=== PATIENT | female | born 2000 | race Caucasian/White ===

== ENCOUNTER 2024-09-10 08:46 | Emergency (ER) | payer BC ==
--- NOTE | 2024-09-10 10:21 | EDPHYS ---
Physician Documentation [facility] Name: Keisha Mann Age: 23 yrs Sex: Female : 2000 Arrival Date: 09/10/2024 Time: 08:46 Bed 13 Private MD: ALEXANDRA Physician Brett Gaspar HPI: 09/10 10:15 This 23 yrs old Female presents to ER via Ambulatory with complaints of Cyst faith - lower back. 10:15 The patient presents with an abscess of the coccyx, The patient presents with faith cellulitis of the coccyx. Description: The affected area is small, confluent. Onset: The symptoms/episode began/occurred 3 day(s) ago. Possible cause(s): hair. Associated signs and symptoms: The patient has no apparent associated signs or symptoms. Modifying factors: the symptoms are alleviated by remaining still, the symptoms are aggravated by movement, walking, pressure, sitting. Severity of symptoms: At their worst the symptoms were mild, moderate, in the emergency department the symptoms are unchanged. The patient has not experienced similar symptoms in the past. 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 - Infectious Disease History:: Denies. - Social history:: Smoking status: Patient denies any tobacco usage or history of. - Family history:: not pertinent. ROS: 10:15 Constitutional: Negative for fever, chills, and weight loss, Eyes: Negative for injury, faith pain, redness, and discharge, ENT: Negative for injury, pain, and discharge, Neck: Negative for injury, pain, and swelling, Cardiovascular: Negative for chest pain, palpitations, and edema, Respiratory: Negative for shortness of breath, cough, wheezing, and pleuritic chest pain, Abdomen/GI: Negative for abdominal pain, nausea, vomiting, diarrhea, and constipation, Back: Negative for injury and pain, : Negative for injury, bleeding, discharge, and swelling, MS/Extremity: Negative for injury and deformity, Skin: Negative for injury, rash, and discoloration, Neuro: Negative for headache, weakness, numbness, tingling, and seizure, Psych: Negative for depression, anxiety, suicide ideation, homicidal ideation, and hallucinations, Allergy/Immunology: Negative for hives, rash, and allergies, Endocrine: Negative for neck swelling, polydipsia, polyuria, polyphagia, and marked weight changes, Hematologic/Lymphatic: Negative for swollen nodes, abnormal bleeding, and unusual bruising, Exam: 10:15 Constitutional: This is a well developed, well nourished patient who is awake, alert, faith and in no acute distress. Head/Face: Normocephalic, atraumatic. Eyes: Pupils equal round and reactive to light, extra-ocular motions intact. Lids and lashes normal. Conjunctiva and sclera are non-icteric and not injected. Cornea within normal limits. Periorbital areas with no swelling, redness, or edema. ENT: Nares patent. No nasal discharge, no septal abnormalities noted. Tympanic membranes are normal and external auditory canals are clear. Oropharynx with no redness, swelling, or masses, exudates, or evidence of obstruction, uvula midline. Mucous membranes moist. Neck: Trachea midline, no thyromegaly or masses palpated, and no cervical lymphadenopathy. Supple, full range of motion without nuchal rigidity, or vertebral point tenderness. No Meningismus. Chest/axilla: Normal chest wall appearance and motion. Nontender with no deformity. No lesions are appreciated. Cardiovascular: Regular rate and rhythm with a normal S1 and S2. No gallops, murmurs, or rubs. Normal PMI, no JVD. No pulse deficits. Respiratory: Lungs have equal breath sounds bilaterally, clear to auscultation and percussion. No rales, rhonchi or wheezes noted. No increased work of breathing, no retractions or nasal flaring. Abdomen/GI: Soft, non-tender, with normal bowel sounds. No distension or tympany. No guarding or rebound. No evidence of tenderness throughout. Back: No spinal tenderness. No costovertebral tenderness. Full range of motion. MS/ Extremity: Pulses equal, no cyanosis. Neurovascular intact. Full, normal range of motion., bilateral aka Neuro: Awake and alert, GCS 15, oriented to person, place, time, and situation. Cranial nerves II-XII grossly intact. Motor strength 5/5 in all extremities. Sensory grossly intact. Cerebellar exam normal. Normal gait. Psych: Awake, alert, with orientation to person, place and time. Behavior, mood, and affect are within normal limits. 10:15 Skin: abscess, that is small, of the coccyx, cellulitis, that is minimal, induration, that is moderate is noted, located on the coccyx, Vital Signs: 09:07 BP 121 / 79; Pulse 96; Resp 15; Temp 97.5; Pulse Ox 98% ; Weight 58.06 kg; Height 5 ft. jl7 3 in. ; Pain 02/11; 09:07 Body Mass Index 22.67 (58.06 kg, 160.02 cm) [facility] 09:07 Pain Scale: Adult jl7 MDM: 08:53 Medical Screening Exam initiated [facility] 10:18 Differential diagnosis: abscess, cellulitis. Data reviewed: vital signs, nurses notes, [facility] lab test result(s), urinalysis. Consideration of Admission/Observation Escalation of care including admission/observation considered. I considered the following discharge prescriptions or medication management in the emergency department Medications were administered in the Emergency Department. See MAR. Test considered but Not performed: Labs: no labs. Care significantly affected by the following chronic conditions: none. 09/10 10:15 Order name: Urinalysis w/ reflexes faith 09/10 10:15 Order name: PREGU faith Administered Medications: 11:01 Drug: Cephalexin PO 500 mg PO once Route: PO; go2 11:01 Drug: Trimethoprim-Sulfamethoxazole PO (160 mg-800 mg (DS) 1 tablet PO once Route: PO; go2 11:01 Drug: Ibuprofen PO 600 mg PO once Route: PO; go2 Disposition Summary: 09/10/24 10:21 Discharge Ordered Notes: Location: Home [facility] Problem: new faith Symptoms: have improved faith Condition: Stable faith Diagnosis - Pilonidal cyst with abscess faith - Cellulitis of buttock faith Followup: faith - With: Private Physician - When: 2 - 3 days - Reason: Recheck today's complaints, Continuance of care, Re-evaluation by your physician Followup: faith - With: Contreras Dawson MD - When: Today - Reason: Recheck today's complaints, Re-evaluation by your physician Discharge Instructions: - Discharge Summary Sheet faith - Skin Abscess faith - Cellulitis, Adult faith - Pilonidal Cyst faith - How to Take a Sitz Bath faith - Cellulitis, Adult, [id number] [facility] Forms: - Medication Reconciliation Form faith - Antibiotic Education faith - Prescription Opioid Use faith - Patient Portal Instructions faith - Leadership Thank You Letter faith - Work release form ap3 Prescriptions: - Cephalexin 500 mg Oral capsule - take 1 capsule ORAL route every 6 hours for 7 days; 28 capsule; Refills: 0, [facility] Product Selection Permitted - Motrin IB 200 mg Oral tablet - take 2 tablet ORAL route every 6 hours As needed as needed with food; 30 faith tablet; Refills: 0, Product Selection Permitted - Bactrim DS 800-160 mg Oral Tablet - take 1 tablet ORAL route every 12 hours for 7 days; 14 tablet; Refills: 0, [facility] Product Selection Permitted Signatures: Dispatcher [employer] Brett Ramírez MD MD cha Leal, Jahala, RN RN jl7 Gogo Kunz RN RN go2
--- NOTE | 2024-09-10 10:21 | ER ---
Nurse's Notes [facility] Name: Keisha Mann Age: 23 yrs Sex: Female : 2000 Arrival Date: 09/10/2024 Time: 08:46 Bed 13 Private MD: Diagnosis: Pilonidal cyst with abscess;Cellulitis of buttock Presentation: 09/10 09:07 Chief complaint: Patient states: Pilonidal cyst for months but just started hurting jl7 yesterday. Coronavirus screen: At this time, the client does not indicate any symptoms associated with coronavirus-19. Ebola Screen: No symptoms or risks identified at this time. Initial Sepsis Screen: Does the patient meet any 2 criteria? No. Patient's initial sepsis screen is negative. Does the patient have a suspected source of infection? No. Patient's initial sepsis screen is negative. Risk Assessment: Do you want to hurt yourself or someone else? Patient reports no desire to harm self or others. Onset of symptoms is unknown. 09:07 Method Of Arrival: Ambulatory [facility] 09:07 Acuity: BELKIS 4 jl7 Triage Assessment: 09:09 General: Appears in no apparent distress. uncomfortable, Behavior is calm, cooperative, jl7 appropriate for age. Pain: Complains of pain in buttocks Pain currently is 7 out of 10 on a pain scale. Derm: Skin is intact, Skin is pink, warm \T\ dry. redness noted to sacral area. 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 - Infectious Disease History:: Denies. - Social history:: Smoking status: Patient denies any tobacco usage or history of. - Family history:: not pertinent. Screenin:28 [facility] ED Fall Risk Assessment (Adult) History of falling in the last 3 months, go2 including since admission No falls in past 3 months (0 pts) Confusion or Disorientation No (0 pts) Intoxicated or Sedated No (0 pts) Impaired Gait No (0 pts) Mobility Assist Device Used No (0 pt) Altered Elimination No (0 pt) Score/Fall Risk Level 0 - 2 = Low Risk. Abuse screen: Denies threats or abuse. Denies injuries from another. Nutritional screening: No deficits noted. Tuberculosis screening: No symptoms or risk factors identified. Assessment: 11:26 Reassessment: No changes from previously documented assessment. Patient states feeling go2 better. Patient states symptoms have improved. General: Appears in no apparent distress. comfortable, well groomed, Behavior is calm, cooperative, appropriate for age, Smells of Reports Denies fever, fatigue, chills. Pain: Complains of pain in buttocks. Neuro: No deficits noted. Respiratory:. GI: No deficits noted. : No deficits noted. EENT: No deficits noted. Derm: Abscess located on buttocks is half dollar sized, Reports pain that is 6 out of 10 on a pain scale. Musculoskeletal: No deficits noted. Vital Signs: 09:07 BP 121 / 79; Pulse 96; Resp 15; Temp 97.5; Pulse Ox 98% ; Weight 58.06 kg; Height 5 ft. jl7 3 in. ; Pain 7/10; 09:07 Body Mass Index 22.67 (58.06 kg, 160.02 cm) jl7 09:07 Pain Scale: Adult jl7 ED Course: 08:50 Patient arrived in ED. al6 08:53 Brett Gaspar MD is Attending Physician. [facility] 09:09 Triage completed. jl7 09:09 Arm band placed on right wrist. Patient placed in waiting room, Patient notified of jl7 wait time. 10:21 Contreras Dawson MD is Referral Physician. faiht 10:24 Gogo Kunz RN is Primary Nurse. go2 10:41 PREGU Sent. zm 10:41 Urinalysis w/ reflexes Sent. zm 10:42 Urine collected: clean catch specimen, clear. zm 10:52 PREGU Sent. go2 10:52 Urinalysis w/ reflexes Sent. go2 Administered Medications: 11:01 Drug: Cephalexin PO 500 mg PO once Route: PO; go2 11:01 Drug: Trimethoprim-Sulfamethoxazole PO (160 mg-800 mg (DS) 1 tablet PO once Route: PO; go2 11:01 Drug: Ibuprofen PO 600 mg PO once Route: PO; go2 Outcome: 10:21 Discharge ordered by . faith 11:27 Patient left the ED. iw Signatures: Brett Gaspar MD MD cha Williams, Irene, RN RN iw Leal, Jahala, RN RN jl7 Zuleyka Lyons Gabby, RN RN go2 Sofie Werner
[2024-09-10 10:55] LABS: Specific Gravity 1.024 (1.005-1.030)
[2024-09-10 10:57] LABS: Specific Gravity 1.024 (1.005-1.030); Sqamous Epithelial <5 /HPF (None Seen); Urine Bacteria None Seen /HPF (<20); Urine Bilirubin NEGATIVE (Negative); Urine Blood 2+ (Negative); Urine Clarity Turbid (Clear); Urine Color Light-Yellow (Yellow); Urine Culture Reflex Order NOT NEEDED; Urine Glucose NEGATIVE (Negative); Urine Ketones TRACE (Negative); Urine Microscopic Reflex YN ORDER UMIC; Urine Mucus Slight /HPF (None Seen); Urine Nitrite NEGATIVE (Negative); Urine Protein NEGATIVE (Negative); Urine Urobilinogen Normal (Normal); Urine WBC <5 /HPF (<5); Urine pH 6.5 (5.0-7.0)
[2024-09-10] MEDS ORDERED: CEPHALEXIN 250 MG CAP ONE (10:58)
[2024-09-10] MEDS ORDERED: IBUPROFEN 200 MG TAB PO ONE (10:59)
[2024-09-10] MEDS ORDERED: IBUPROFEN 400 MG TAB ONE (10:59)
[2024-09-10] MEDS ORDERED: SMZ./TMP. 800/160 MG TABLET ONE (11:01)
[2024-09-10 11:47] VITALS: BP 121/79; TEMP 97.5; O2SAT 98
== END 2024-09-10 11:27 | disposition home or self-care (01) ==
LOC: ER 08:46
DX: L05.01 Pilonidal cyst with abscess (principal); L03.317 Cellulitis of buttock
CPT/HCPCS: 81001; 81025; 99283

== ENCOUNTER 2024-09-18 11:58 | Day surgery (SDC) | payer BC ==
[2024-09-17 11:10] LABS: Anion Gap 8.7 mEq/L (5.0-15.0); Potassium 3.7 mEq/L (3.5-5.1)
[2024-09-18] MEDS: Ringers Lactate 1,000 ML IV ONE (12:25)
[2024-09-18] MEDS ORDERED: MIDAZOLAM HCL 2 MG/2 ML INJ ONE (12:46)
[2024-09-18] MEDS ORDERED: FENTANYL CITR 100 MCG/2 ML ONE (12:46)
[2024-09-18] MEDS ORDERED: LIDOCAINE 2% MPF 5 ML VIAL ONE (12:46)
[2024-09-18] MEDS ORDERED: ONDANSETRON 4 MG/2 ML VIAL ONE (12:46)
[2024-09-18] MEDS ORDERED: propofoL 200 MG/20 ML VIAL IV ONE (12:46)
[2024-09-18 13:01] VITALS: O2SAT 100
[2024-09-18] MEDS: CEFOXITIN SODIUM 2 GM/VIAL ONE (13:31)
[2024-09-18] MEDS ORDERED: KETOROLAC 30 MG/ML INJ ONE (13:32)
[2024-09-18] MEDS ORDERED: dexAMETHasone 10 MG/ML VIAL ONE (13:32)
[2024-09-18] MEDS: LIDOCAINE HCL/EPINEPHRINE 20 ML MDV ONE (13:47)
[2024-09-18] MEDS: METHYLENE BLUE 1% 10 ML VIAL ONE (13:48)
--- NOTE | 2024-09-18 14:09 | P.OP ---
Preoperative diagnosis: Pilonidal Cyst with Sinus Postoperative diagnosis: Pilonidal Cyst with Sinus Primary procedure: Wide Excisional Debridment of Pilonidal Cyst with Sinus Secondary procedure: Application of Kerecis Fish graft Anesthesia: GETA + Local Estimated blood loss: <5cc Specimen: Debridement Tissue Findings: ~ 4cm x 3cm to fascia Complications: None Implants: Kerecis Fish Graft 8 Units Transferred to: Recovery Room Condition: Good
[2024-09-18] MEDS: MEPERIDINE HCL 25 MG/ML SYR ONE (14:17)
[2024-09-18] MEDS: HYDROCODONE/APAP 7.5/325 MG TAB ONE (15:28)
[2024-09-18 15:40] VITALS: BP 110/69
[2024-09-18 18:03] VITALS: TEMP 98
--- NOTE | 2024-09-19 00:43 | OP ---
Date of Procedure: 09/18/2024 Surgeon: Contreras Dawson MD, Preoperative Diagnosis: Pilonidal cyst sinus. Postoperative Diagnosis: Pilonidal cyst sinus. Procedure: Wide local excision and debridement of pilonidal cyst sinus and application of Kerecis 8 units fish graft. Anesthesia: General endotracheal plus local 1% lidocaine without epinephrine. Estimated Blood Loss: Less then 5 cc. Specimen: Debridement tissue. Findings: Approximately 4 cm x 3 cm pilonidal cyst with sinus extending to the fascia overlying the sacrum and superior mike cleft. Complications: None. Implants: Kerecis fish graft 8 units utilized. Disposition: The patient transferred recovery room in good condition. Procedure In Detail: After informed consent was obtained, the patient was brought to the operating r oom, prepped in the usual sterile fashion. After adequate anesthesia achieved, I injecting the area of pilonidal cyst with methylene blue. I made an elliptical incision around the area of concern whic h involved a pilonidal cyst, superior cleft, and a small pilonidal sinus just inferior to this. I made an elliptical incision with a 15 blade down to subcutaneous tissues. Electrocautery was used to dissect down circumferentially around to involve all blue tissues, which was involved with the pi lonidal cyst and the sinus. All this was sent off for a debridement tissue. The area was inspected at this point. Hemostasis was achieved with electrocautery. The area was copiously irrigated. No a dditional hemostasis was required. I then applied 8 units of Kerecis fish graft after appropriately hydrating this specimen, placed into the wound bed and placed Adaptive cover the top with a damp sali ne covered gauze and a sterile dressing was placed over top. The patient tolerated the procedure wel l without incident or complication, transferred to PACU in good condition. All counts were correct a t the end of the case. TK/MODL Voice ID: [id number] Report ID: [id number]
== END 2024-09-18 16:45 | disposition home or self-care (01) ==
LOC: OR 11:58
PROVIDERS: ATTEND Surgery
PROC: XHRPXF7 Replacement of Skin with Bioengineered Allogeneic Construct, External Approach, New Technology Group 7 (ICD-10-PCS; 2024-09-18)
PROC: 0JB90ZZ Excision of Buttock Subcutaneous Tissue and Fascia, Open Approach (ICD-10-PCS; principal; 2024-09-18 13:45)
DX: L05.01 Pilonidal cyst with abscess (principal)
CPT/HCPCS: 80048; 36415; 84703; 11770; 15271; J2704; J2003; J2250; J3010; J1100; J2175; J0694; J2405; J7120; 88304